=== PATIENT | female | born 1980 | race Two or more races ===

== ENCOUNTER 2025-06-11 18:14 | Emergency (ER) | payer OTHER ==
[~2025-06-11] VITALS: Ht 154.9 cm; Wt 54.0 kg
[2025-06-11 19:12] VITALS: BP 110/66; O2SAT 100
[2025-06-11] MEDS ORDERED: FAMOTIDINE/PF 20 MG/2 ML VIAL IV STA (19:42)
[2025-06-11] MEDS ORDERED: ONDANSETRON HCL 2 MG/ML VIAL IV STA (19:42)
[2025-06-11] MEDS ORDERED: KETOROLAC TROMETHAMINE 30 MG VIAL IM STA (19:43)
[2025-06-11] MEDS ORDERED: 0.9 % SODIUM CHLORIDE 1,000 ML IV STA (19:43)
[2025-06-11] MEDS ORDERED: ONDANSETRON HCL 2 MG/ML VIAL ONE (19:57)
[2025-06-11] MEDS ORDERED: KETOROLAC TROMETHAMINE 30 MG VIAL ONE (19:57)
[2025-06-11] MEDS ORDERED: FAMOTIDINE/PF 20 MG/2 ML VIAL ONE (19:58)
[2025-06-11 20:27] LABS: BASO % 0.5 % (0.1-1.2); EOS # 0.08 (0.04-0.54); EOS % 1.0 % (0.7-7.0); LYMPH # 1.19 (1.18-3.74); LYMPH % 15.6 % (19.3-53.1); MEAN PLATELET VOLUME 9.70 fl (9.4-12.4); MONO # 0.75 (0.24-0.82); MONO % 9.8 % (4.7-12.5); NEUT # 5.55 (1.56-6.13); NEUT % 72.7 % (34.0-71.1); RED CELL DISTRIBUTION WIDTH 11.8 % (11.6-14.4)
[2025-06-11 20:45] LABS: BUN CREA RATIO 17.0 (7.0-25.0); CREATININE SERUM 1.04 mg/dL (0.55-1.02); GFR 57.57; GLUCOSE FASTING 116.0 mg/dL (65-100); OSMOLALITY SERUM 290.0 MOSM/KG (275-295)
[2025-06-11 21:46] LABS: URINE APPEARANCE Clear; URINE BILIRRUBIN Negative (NEGATIVE); URINE BLOOD Trace; URINE COLOR Yellow; URINE GLUCOSE Negative (NEGATIVE); URINE KETONE Negative (NEGATIVE); URINE LEUKOCYTE Negative; URINE NITRATE Negative; URINE PROTEIN Negative (NEGATIVE); URINE UROBILINOGEN 0.2 E.U./dl
[2025-06-11 21:47] LABS: URINE BACTERIA 152.1 uL (0.0-1933); URINE EPITHELIAL CELLS 8.7 uL (0.0-38.8); URINE RBC 4.3 uL (0.0-20.8); URINE WBC 19.1 uL (0.0-23.2)
[2025-06-11 21:51] LABS: URINE CAST 0.42 uL (0.0-1.40)
[2025-06-11] MEDS ORDERED: PRILOSEC OTC20 MG PO (22:31)
[2025-06-11] MEDS ORDERED: PEPCID AC20 MG PO (22:31)
== END 2025-06-11 22:45 | disposition home or self-care (01) ==
LOC: ER 18:14
PROVIDERS: General Practice
DX: R10.84 Generalized abdominal pain (principal); R10.A1 Flank pain, right side; R10.A2 Flank pain, left side